=== PATIENT | male | born 1995 | race Caucasian/White ===

== ENCOUNTER 2020-04-13 13:12 | Emergency (ER) | payer OTHER ==
[~2020-04-13] VITALS: Ht 177.8 cm; Wt 70.8 kg
== END 2020-04-13 16:17 | disposition home or self-care (01) ==
LOC: ER 13:12
DX: L02.416 Cutaneous abscess of left lower limb (principal); B95.61 Methicillin susceptible Staphylococcus aureus infection as the cause of diseases classified elsewhere

== ENCOUNTER 2021-08-31 21:32 | Emergency (ER) | payer OTHER ==
[~2021-08-31] VITALS: Ht 175.3 cm; Wt 70.3 kg
[2021-09-01] MEDS ORDERED: BACTRIM 400-801 EACH PO (03:04)
[2021-09-01] MEDS ORDERED: MUPIROCIN1 G1 TOP (03:04)
== END 2021-09-01 02:59 ==
LOC: ER 21:32
DX: L03.114 Cellulitis of left upper limb (principal); B95.61 Methicillin susceptible Staphylococcus aureus infection as the cause of diseases classified elsewhere